=== PATIENT | female | born 2000 | race African-American/Black ===

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

== ENCOUNTER 2021-02-01 18:04 | Emergency (ER) | payer OTHER | END 2021-02-01 18:20 | disposition home or self-care (01) | LOC: MADERS 18:04 | DX: J02.9 Acute pharyngitis, unspecified (principal); J30.1 Allergic rhinitis due to pollen | CPT/HCPCS: 99283 ==

== ENCOUNTER 2021-03-17 12:32 | Emergency (ER) | payer OTHER ==
[2021-03-17] MEDS ORDERED: Ibuprofen 400 MG TAB ONE (13:37)
[2021-03-17 14:16] LABS: ALT (SGPT) 14 U/L (8-55); AST (SGOT) 16 U/L (5-30); Albumin 3.9 g/dL (3.5-5.0); Alkaline Phosphatase 60 U/L (40-100); Anion Gap 8 mmol/L (10-20); BUN (Urea Nitrogen) 5 mg/dL (8.4-21.0); Bilirubin, Total 0.6 mg/dL (0.2-1.2); Calc. Creatinine Clearance 0 mL/min (70-130); Calcium 9.6 mg/dL (7.8-10.44); Carbon Dioxide 24 mmol/L (22-29); Chloride 107 mmol/L (98-107); Globulin 3.3 g/dL (2.4-3.5); Glucose 84 mg/dL (70-105); Potassium 3.7 mmol/L (3.5-5.1); Protein, Total 7.2 g/dL (6.0-8.3); Sodium 135 mmol/L (136-145)
[2021-03-17 14:17] LABS: CRP (Inflammatory) 0.66 mg/dL (= or < 0.5)
[2021-03-17 14:18] LABS: Band 2 % (5-11); Eosinophils 1 % (0-10); Hemoglobin 11.8 g/dL (12.0-16.0); Hypochromia SLIGHT = 6-15 cells (100X) (0-5/hpf); Lymphocytes 12 % (28-48); MDiff Complete? YES; Mean Corpuscular HGB CONC 31.1 g/dL (32.0-36.0); Mean Corpuscular Hemoglobin 25.7 pg (25.0-35.0); Mean Corpuscular Volume 82.7 fL (78.0-98.0); Mean Platelet Volume 7.6 fL (7.4-10.4); Monocytes 18 % (0-4); Neutrophil 67 % (31-61); Platelet Count 241 thou/uL (130-400); Platelet Morphology Comment Appears Adequate; RBC Distribution Width 12.4 % (11.5-14.5); Red Blood Cell (RBC) Count 4.59 mill/uL (4.00-5.20); White Blood Cell (WBC) Count 4.5 thou/uL (4.8-10.8)
== END 2021-03-17 15:05 | disposition home or self-care (01) ==
LOC: MADERS 12:32
DX: J20.8 Acute bronchitis due to other specified organisms (principal); R07.89 Other chest pain; R00.0 Tachycardia, unspecified; Z20.822 Contact with and (suspected) exposure to COVID-19
CPT/HCPCS: 71045; 80053; 82550; 84484; 85025; 85379; 86140; 93005

== ENCOUNTER 2021-03-18 11:51 | Emergency (ER) | payer OTHER ==
[2021-03-18] MEDS ORDERED: Acetaminophen 500 MG TAB ONE (12:34)
[2021-03-18 20:58] LABS: SARS-CoV-2 PCR by NAA DETECTED (NotDetected)
== END 2021-03-18 13:30 | disposition home or self-care (01) ==
LOC: MADERS 11:51
DX: U07.1 COVID-19 (principal); Z79.899 Other long term (current) drug therapy
CPT/HCPCS: 99283; U0003; U0005

== ENCOUNTER 2022-03-13 17:20 | Emergency (ER) | payer OTHER ==
[2022-03-13] MEDS ORDERED: Ibuprofen 800 MG TAB ONE (17:40)
== END 2022-03-13 17:45 | disposition home or self-care (01) ==
LOC: MADERS 17:20
DX: K08.89 Other specified disorders of teeth and supporting structures (principal)
CPT/HCPCS: 99282

== ENCOUNTER 2022-11-11 10:57 | Emergency (ER) | payer OTHER, SELFPAY ==
[2022-11-11 12:04] LABS: SARS-CoV-2 NAA Rapid Test Not Detected (NotDetected)
[2022-11-11] MEDS ORDERED: Lactated Ringer's 1,000 ML ONE (12:30)
[2022-11-11] MEDS ORDERED: Ketorolac Tromethamine 30 MG/ML VIAL ONE (12:30)
[2022-11-11 13:04] LABS: INR-International Normal Ratio 1.1; Prothrombin Time 14.6 sec (12.0-14.7)
[2022-11-11 13:05] LABS: PTT 32.3 sec (22.9-36.1)
[2022-11-11 13:06] LABS: BHCG - Serum Negative (NEGATIVE)
[2022-11-11 13:07] LABS: Pregs Control Background? CLEAR/WHITE (CLR/WHITE); Pregs Control Bar Appear? YES (CONTROL BAR)
[2022-11-11 13:14] LABS: Hemoglobin 12.6 g/dL (12.0-16.0); Mean Corpuscular HGB CONC 31.6 g/dL (32.0-36.0); Mean Corpuscular Hemoglobin 25.8 pg (27.0-31.0); Mean Corpuscular Volume 81.5 fl (78.0-98.0); Mean Platelet Volume 8.6 fL (7.4-10.4); Platelet Count 288 10x3/uL (130-400); RBC Distribution Width 12.8 % (11.5-14.5); White Blood Cell (WBC) Count 4.1 10x3/uL (4.8-10.8)
[2022-11-11 13:16] LABS: ALT (SGPT) 13 U/L (8-55); AST (SGOT) 17 U/L (5-34); Albumin 4.1 g/dL (3.5-5.0); Alkaline Phosphatase 74 U/L (40-110); Anion Gap 13 mmol/L (10-20); BUN (Urea Nitrogen) 7 mg/dL (7.0-18.7); Bilirubin, Total 0.5 mg/dL (0.2-1.2); Calc. Creatinine Clearance 0 mL/min (70-130); Calcium 9.6 mg/dL (7.8-10.44); Carbon Dioxide 22 mmol/L (22-29); Chloride 108 mmol/L (98-107); Estimated GFR 124; Globulin 3.3 g/dL (2.4-3.5); Glucose 97 mg/dL (70-105); Potassium 3.9 mmol/L (3.5-5.1); Protein, Total 7.4 g/dL (6.0-8.3); Sodium 139 mmol/L (136-145)
[2022-11-11 13:40] LABS: Anisocytosis SLIGHT = 6-15 cells (100X) (0-5/hpf); Band 1 % (5-11); Lymphocytes 38 % (21-51); MDiff Complete? YES; Manual Diff?? YES; Monocytes 11 % (0-10); Neutrophil 50 % (42-75); Platelet Adequacy Comment Appears Adequate
[2022-11-11 13:41] LABS: Troponin I Less than 0.010 ng/mL (< 0.028)
== END 2022-11-11 13:53 | disposition home or self-care (01) ==
LOC: MADERS 10:57
DX: J06.9 Acute upper respiratory infection, unspecified (principal); Z20.822 Contact with and (suspected) exposure to COVID-19
CPT/HCPCS: 71045; 80053; 83605; 84484; 84703; 85025; 85610; 85730; 87040; 87081; 87430; 87804; 93005; 94760; 96374; J1885; J7120; U0002

== ENCOUNTER 2023-05-11 08:07 | Emergency (ER) | payer OTHER ==
[2023-05-11] MEDS ORDERED: Ibuprofen 600 MG TAB ONE (09:03)
[2023-05-11 09:47] LABS: SARS-CoV-2 NAA Rapid Test Not Detected (NotDetected)
== END 2023-05-11 10:12 | disposition home or self-care (01) ==
LOC: MADERS 08:07
DX: J06.9 Acute upper respiratory infection, unspecified (principal); J00 Acute nasopharyngitis [common cold]; F17.290 Nicotine dependence, other tobacco product, uncomplicated
CPT/HCPCS: 87081; 87430; 99283

== ENCOUNTER 2024-04-03 22:04 | Emergency (ER) | payer OTHER, SELFPAY ==
[2024-04-03] MEDS ORDERED: Ketorolac Tromethamine 30 MG (1 mL) VIAL ONE (22:28)
== END 2024-04-03 23:00 | disposition home or self-care (01) ==
LOC: MADERS 22:04
DX: J10.1 Influenza due to other identified influenza virus with other respiratory manifestations (principal); F17.290 Nicotine dependence, other tobacco product, uncomplicated
CPT/HCPCS: 87428; 96372; 99283; J1885